=== PATIENT | female | born 1990 | race Caucasian/White ===

== ENCOUNTER → 2016-09-19 | Emergency (ER) | payer MEDICAID ==
[~2016-09-19] MED LIST: ACET325 PO; FOLIPOW27; IBUP-232 PO; OXYC1TAB63 PO; PERC5TAB12 PO; PREN1TAB30; SENN1TAB PO
--- NOTE | 2016-09-19 23:42 | PD ---
HPI Chief Complaint Contractions Date Seen: Sep 19, 2016 Time Seen: 23:38 Travel History International Travel<30 Days: No Contact w/Intl Traveler<30Days: No Known Affected Area: No History of Present Illness HPI 26-year-old who is at 38 weeks and 6 days comes in tonight for mild contractions for the past [address] Malone at [facility]. Had a previous section 1. Para: 3 : 3 History Past Medical History Medical History: Denies Significant Hx Obstetric History Obstetric History Spontaneous vaginal delivery 1, 1 Past Surgical History Narrative Surgical section Family History Family History: Negative Social History Alcohol Use: No Tobacco Use: No Substance Abuse: No Allergies-Medications (Allergen,Severity, Reaction): Coded Allergies: No Known Allergies (Unverified , 03/27/14) Home Meds Active Scripts Oxycodone-Acetaminophen 5-325 mg (Percocet 5-325 mg)1 Tab Tab1 Tab PO Q4H PRN ( PAIN SCALE 1 TO 4) #10 TAB Prov:Irene Gu MD R3 03/30/14 Acetaminophen (Tylenol)325 Mg [id number] Mg PO Q4H PRN (PAIN) #30 TAB Prov:Irene Gu MD R3 03/30/14 Reported Medications Folic Acid Pow 03/27/14 Vit W/ Ferrous Fumara ( Vitamin 27-0.8 mg)1 Tab Tab 03/27/14 Review of Systems Except as stated in HPI: all other systems reviewed are Neg Physical Exam Narrative GENERAL: Well-nourished, well-developed patient. SKIN: Warm and dry. HEAD: Normocephalic and atraumatic. EYES: No scleral icterus. No injection or drainage. ENT: No nasal drainage noted. Mucous membranes pink. Airway patent. NECK: Supple, trachea midline. No JVD. CARDIOVASCULAR: Regular rate and rhythm without murmurs, gallops, or rubs. RESPIRATORY: Breath sounds equal bilaterally. No accessory muscle use. BREASTS: Bilateral exam showed no masses , no retractions, no nipple discharge. ABDOMEN/GI: Abdomen soft, non-tender, bowel sounds present, no rebound, no guarding Gravid to [-] weeks size Fundal Height: [-38] GENITOURINARY: External Genitalia: intact and normal in appearance BUS glands: [-Normal] Cervix: Posterior Dilatation: 1-2 Effacement: 50 Station: -3 Presentation: Vertex Membranes: Intact Uterine Contractions: [-Irregular occasional] FHT's: Category: [-1] Baseline: 140 Reactive: Moderate Variability: Moderate with accelerations Decels: Absent EXTREMITIES: No cyanosis or edema. BACK: Nontender without obvious deformity. No CVA tenderness. NEUROLOGICAL: Awake and alert. Motor and sensory grossly within normal limits. Five out of 5 muscle strength in all muscle groups. Normal speech. Data Data Vital Signs Reviewed: Yes [facility] Medical Record Reviewed: No Plan Patient at 38 weeks 6 days, false labor. Will follow-up with her OB provider Precautions were given to return back to the hospital for rupture membranes, vaginal bleeding, or worsening contractions Diagnosis Diagnosis: Primary Impression: 38 weeks gestation of Additional Impressions: Previous section False labor False labor after 37 completed weeks of gestation Disposition: 01 DISCHARGE HOME Lynda Stauffer MD Sep 19, 2016 23:42
== END | disposition home or self-care (01) ==
LOC: HOBED 22:49
DX: O47.1 False labor at or after 37 completed weeks of gestation (principal); Z3A.38 38 weeks gestation of pregnancy
CPT/HCPCS: 59025

== ENCOUNTER 2016-09-26 22:04 | Inpatient (IN) | payer MEDICAID ==
[~2016-09-26 22:04] MED LIST changes: -IBUP-232 PO; -OXYC1TAB63 PO; -SENN1TAB PO
[2016-09-26] MEDS: LACTATED RINGER'S 1000 ML INJ 1,000 ML IV SCH (22:56)
[2016-09-26] MEDS ORDERED: LACTATED RINGER'S 1000 ML INJ 1,000 ML IV PRN (22:56)
[2016-09-26] MEDS ORDERED: MINERAL OIL 10 ML VIAL TOPICAL PRN (23:00)
[2016-09-26] MEDS ORDERED: OXYTOCIN 30 UNITS-500ML PREMIX 500 ML IV ONE (23:00)
[2016-09-26] MEDS ORDERED: LIDOCAINE HCL 1% 50 ML VIAL I-DERMAL PRN (23:00)
[2016-09-26] MEDS ORDERED: LIDOCAINE HCL 1% 50 ML VIAL INFIL PRN (23:00)
[2016-09-26] MEDS ORDERED: ONDANSETRON HCL 4 MG/2 ML VIAL IV PRN (23:00)
[2016-09-26] MEDS ORDERED: CITRIC ACID-SODIUM CITRATE LIQ 30 ML UDC PO SCH (23:00)
[2016-09-26] MEDS ORDERED: SODIUM CHLORID 0.9% 500 ML INJ 500 ML IV PRN (23:00)
[2016-09-26] MEDS ORDERED: SODIUM CHLOR 0.9% 1000 ML INJ 1,000 ML IV PRN (23:16)
[2016-09-26 23:27] LABS: BACTERIA, URINE RARE /hpf; BLOOD, URINE NEG (NEG); COMMENT (UR) CULT NOT INDICATED; CULTURE IF INDICATED CULT NOT INDICATED; GLUCOSE,URINE NEG (NEG); KETONE, URINE NEG (NEG); MUCUS URINE FEW /lpf (OCC); NITRITE,URINE NEG (NEG); PH, URINE 6.5 (5.0-8.5); SQUAMOUS EPITHELIAL CELL URINE 4 /hpf (0-5); URINE COLOR YELLOW (YELLW/STRAW)
[2016-09-27] VITALS (52 sets, daily range): BP systolic 97–121; BP diastolic 46–71; PULSE 43–83; RESP 16–18; TEMP 97.6–98.2; O2SAT 98–99
[2016-09-27 00:12] LABS: AUTOMATED NEUTROPHIL # 4.9 TH/MM3 (1.8-7.7); BASOPHIL % 0.5 % (0.0-2.0); EOSINOPHIL # 0.2 TH/MM3 (0-0.4); EOSINOPHIL % 2.1 % (0.0-4.0); HEMATOCRIT 32.4 % (35.0-46.0); HEMO FLAGS DIFF FINAL; LYMPH % 24.8 % (9.0-44.0); LYMPHOCYTE # 1.8 TH/MM3 (1.0-4.8); MEAN CELL VOLUME 91.6 FL (80.0-100.0); MEAN CORPUSCULAR HEMOGLOBIN 30.7 PG (27.0-34.0); MEAN CORPUSCULAR HGB CONC 33.5 % (32.0-36.0); MONO % 5.2 % (0.0-8.0); NEUT % 67.4 % (16.0-70.0); PLATELET COUNT 143 TH/MM3 (150-450); RED BLOOD COUNT 3.54 MIL/MM3 (4.00-5.30); RED CELL DISTRIBUTION WIDTH 13.8 % (11.6-17.2); WHITE BLOOD COUNT 7.3 TH/MM3 (4.0-11.0)
--- NOTE | 2016-09-27 00:15 | PD ---
History of Present Illness History of Present Illness HPI Chief Complaint Contractions Date Seen: Sep 26, 2016 Time Seen: 23:00 (Godwin Aldana MD R1) Travel History International Travel<30 Days: No Contact w/Intl Traveler<30Days: No Known Affected Area: No (Godwin Aldana MD) History of Present Illness HPI Patient is a at 39 weeks and 6 days who presents with contractions. Patient reports that she started to feel suprapubic and lower back pain and pressure starting this morning. She tried to endure the pain, but it became too intense, so she presented to the OB ED. She currently complains of left sided suprapubic pain. She denies any leakage of fluid or vaginal bleeding. She reports dark white vaginal discharge. She endorses movement. She denies any vaginal itching, burning, irritation. She denies any headache, blurred vision, vomiting, right upper quadrant pain, chest pain, shortness of breath, leg pain, dysuria. She endorses some mild nausea, lower extremity swelling. Patient reports that she has not had any care since March in [place]. Patient reports desire for . Para: 3 : 3 Last Menstrual Period: Sep 26, 2016 (Godwin Aldana MD R1) History Past Medical History Narrative Medical Patient denies any medical conditions including diabetes and hypertension. Medical History: Denies Significant Hx (Godwin Aldana MD R1) Obstetric History Obstetric History Patient is a , mother of a boy and twin girls. The son was born 2 days early via vaginal delivery. The twins were born 1 month early via . She reports that all of her pregnancies and deliveries were uncomplicated. ( Godwin Aldana MD R1) Past Surgical History Narrative Surgical for twin gestation (Godwin Aldana MD) Family History Narrative Family History No family history of problems with Family History: Negative (Godwin Aldana MD) Social History Narrative Social History Patient feels safe at home. Alcohol Use: No Tobacco Use: Yes (3-5 cigarettes per day) Substance Abuse: No (Godwin Aldana MD R1) Allergies-Medications (Allergen,Severity, Reaction): Coded Allergies: No Known Allergies (Unverified , 03/27/14) Home Meds Active Scripts Oxycodone-Acetaminophen 5-325 mg (Percocet 5-325 mg)1 Tab Tab1 Tab PO Q4H PRN ( PAIN SCALE 1 TO 4) #10 TAB Prov:Irene Gu MD R3 03/30/14 Acetaminophen (Tylenol)325 Mg [id number] Mg PO Q4H PRN (PAIN) #30 TAB Prov:Irene Gu MD R3 03/30/14 Reported Medications Folic Acid Pow 03/27/14 Vit W/ Ferrous Fumara ( Vitamin 27-0.8 mg)1 Tab Tab 03/27/14 Review of Systems General / Constitutional: No: Fever, Chills Eyes: No: Blurred Vision, Visual changes HENT: No: Headaches Cardiovascular: No: Chest Pain or Discomfort Respiratory: No: Short of Breath Gastrointestinal: Nausea, Abdominal Pain (suprapubic pain), No: Vomiting Genitourinary: No: Dysuria Musculoskeletal: Cramping (suprapubic), Edema (mild lower extremity edema), Pain (low back pain) Skin: No Rash Neurologic: No: Headache, Seizures (Godwin Aldana MD R1) Physical Exam Narrative GENERAL: Well-nourished, well-developed patient. SKIN: Warm and dry. HEAD: Normocephalic and atraumatic. EYES: No scleral icterus. No injection or drainage. ENT: No nasal drainage noted. Mucous membranes pink. Airway patent. NECK: Supple, trachea midline. No JVD. CARDIOVASCULAR: Regular rate and rhythm without murmurs, gallops, or rubs. RESPIRATORY: Breath sounds equal bilaterally. No accessory muscle use. BREASTS: Bilateral exam showed no masses , no retractions, no nipple discharge. ABDOMEN/GI: Abdomen soft, non-tender, bowel sounds present, no rebound, no guarding Gravid to 40 weeks size GENITOURINARY exam performed by Dr. García: External Genitalia: intact and normal in appearance Dilatation: 4cm Effacement: 70% Station: -2 Presentation: vertex Membranes: intact Uterine Contractions: q4min FHT's: Category: Category 1 Baseline: 135 bpm Reactive: Reactive Variability: Moderate variability Decels: No decelerations noted EXTREMITIES: No cyanosis or edema. BACK: Nontender without obvious deformity. No CVA tenderness. NEUROLOGICAL: Awake and alert. Motor and sensory grossly within normal limits. Five out of 5 muscle strength in all muscle groups. Normal speech. (Godwin Aldana MD R1) Data Data Vital Signs Reviewed: Yes Orders Admit To Inpatient (09/26/16 ) Code Status (09/26/16 22:56) Vital Signs (Adult) .Per protocol (09/26/16 22:56) Activity Oob Ad Aleyda (09/26/16 22:56) Heart (09/26/16 22:56) Amnioinfusion (09/26/16 22:56) Urinary Catheter Management .ONCE (09/26/16 22:56) Diet Liquid (09/27/16 Breakfast) Lactated Ringer's 1000 Ml Inj (Lr 1000 M (09/26/16 22:56) Lactated Ringer's 1000 Ml Inj (Lr 1000 M (09/26/16 22:56) Sodium Chlorid 0.9% 500 Ml Inj (Ns 500 M (09/26/16 23:00) Sodium Chlor 0.9% 1000 Ml Inj (Ns 1000 M (09/26/16 23:16) Lidocaine 1% Inj (50 Ml) (Xylocaine 1% I (09/26/16 23:00) Citric Acid-Sodium Citrate Liq (Bicitra (09/26/16 23:00) Ondansetron Inj (Zofran Inj) (09/26/16 23:00) Fentanyl Inj (Fentanyl Inj) (09/26/16 23:00) Fentanyl Inj (Fentanyl Inj) (09/26/16 23:00) Complete Blood Count With Diff (09/26/16 22:56) Hold Clot (09/26/16 22:56) Abo/Rh Blood Type (09/26/16 22:56) Urinalysis - C+S If Indicated (09/26/16 22:56) Resp Oxygen Non Rebreathe Mask (09/26/16 ) ^ Epidural / Intrathecal Infus (09/26/16 22:56) Oxytocin 30 Units-500ml Premix (Pitocin (09/26/16 23:00) Lidocaine 1% Inj (50 Ml) (Xylocaine 1% I (09/26/16 23:00) Light Mineral Oil (Muri-Lube Oil) (09/26/16 23:00) Inpatient Certification (09/26/16 ) Group B Beta Strep Scrn (Gbs) (09/26/16 22:56) Rubella Immune Status (09/26/16 22:56) Hepatitis Profile (09/26/16 22:56) Rapid Plasma Regin (Rpr) W Ttr (09/26/16 22:56) Type And Screen (09/26/16 22:56) Special Serology (09/26/16 22:56) Ob (2e) Additional Admit Info (09/26/16 23:09) (Godwin Aldana MD R1) Assessment/Plan Problem List: (1) Uterine contractions during (2) No care in current in third trimester (3) Labor and delivery, indication for care Assessment and Plan Patient is a at 39 weeks and 6 days who presents with contractions, found to be intact, 4 cm dilated, 70% effaced, -2 station. Plan to admit for labor and likely in the morning. 1) labor p/w contractions, cervical dilation Admit to inpatient Liquid diet LR IV Fentanyl 50 g IV push every hour when necessary for pain 3-5 Fentanyl 100 mg IV push every hour when necessary for pain 6-10 Zofran 4 mg IV every 6 hours when necessary for nausea Out of bed ad aleyda. Monitor heart rate with nonstress test Monitor vital signs Monitor contractions with tocometry Plan for in the morning 2) no recent care CBC Hepatitis profile RPR Rubella Special serology GBS screen UA (Godwin Aldana MD R1) Attending Attestation The exam, history, and the medical decision-making described in the above note were completed with the assistance of the resident provider. I reviewed and agree with the findings presented. I attest that I had a [id number] encounter with the patient on the same day, and personally performed and documented my assessment and findings in the medical record. I reviewed the r/b /a of TOLAC versus repeat and pt requests repeat . Pt also requests BTL at time of surgery. However, she has not had PNC or signed consent forms. Advised pt that she will have to schedule PP follow up for tubal consult. (Mario Alberto García MD) Godwin Aldana MD R1 Sep 26, 2016 23:23 Mario Alberto García MD Sep 27, 2016 00:11 <Electronically signed by Godwin Moore MD R1 Jovan> 09/26/16 [id number] <Electronically signed by Mario Alberto García MD> 09/27/16 0013 Mario Alberto García MD Sep 27, 2016 00:15
[2016-09-27 00:43] LABS: AMPHETAMINE, URINE NEG (NEG); BARBITURATES, URINE NEG (NEG); COCAINE, URINE NEG (NEG)
[2016-09-27 05:14] LABS: RUBELLA IGG ANTIBODY 59.1 IU/mL (10.0-500.0); RUBELLA STATUS IMMUNE (IMMUNE)
[2016-09-27] MEDS: LACTATED RINGER'S 1000 ML INJ 1,000 ML IV SCH (05:40)
[2016-09-27] MEDS ORDERED: LACTATED RINGER'S 1000 ML INJ 1,000 ML IV ONE (08:23)
[2016-09-27] MEDS ORDERED: OXYTOCIN 10 UNIT/ML AMP ONE (08:41)
[2016-09-27] MEDS ORDERED: LACTATED RINGER'S 1000 ML INJ 1,000 ML IV SCH ×2 (08:53→15:27)
[2016-09-27] MEDS ORDERED: EPIDURAL-NO SYSTEMIC NARCOTICS PRN (09:20)
[2016-09-27] MEDS ORDERED: EPIDURAL-DIPHENHYDRAMINE HCL 50 MG CAP PO PRN (09:20)
[2016-09-27] MEDS ORDERED: EPIDURAL-DO NOT ADMINISTER ANTICOAGULANTS PRN (09:20)
[2016-09-27] MEDS ORDERED: EPIDURAL-NALOXONE HCL 0.4 MG/ML AMP IV PRN (09:20)
[2016-09-27] MEDS ORDERED: EPIDURAL-DIPHENHYDRAMINE HCL 50 MG/ML VIAL IV PUSH PRN (09:20)
[2016-09-27] MEDS ORDERED: CITRIC ACID-SODIUM CITRATE LIQ 30 ML UDC PO SCH (10:00)
[2016-09-27 10:07] LABS: RAPID PLASMA REAGIN SCREEN NON-REACTIVE (NON-REACTVE)
[2016-09-27] MEDS ORDERED: MORPHINE SULFATE PF 5 MG/10 ML VIAL ONE (10:10)
[2016-09-27] MEDS ORDERED: ONDANSETRON HCL 4 MG/2 ML VIAL ONE (10:10)
[2016-09-27] MEDS ORDERED: SODIUM CHLORIDE 0.9% FLUSH 10 ML FLUSH IV FLUSH PRN (10:30)
[2016-09-27] MEDS ORDERED: oxyCODONE/ACETAMINOPHEN 5 MG/325 MG TAB PO PRN (10:30)
[2016-09-27] MEDS ORDERED: OXYTOCIN 30 UNITS-500ML PREMIX 500 ML IV ONE (10:30)
[2016-09-27] MEDS ORDERED: ONDANSETRON HCL 4 MG/2 ML VIAL IV PUSH PRN (10:30)
[2016-09-27] MEDS ORDERED: ACETAMINOPHEN 1000 MG/100 ML VIAL IV ONE ×2 (10:50→17:00)
[2016-09-27] MEDS ORDERED: KETOROLAC TROMETHAMINE 60 MG/2 ML (IM) VIAL IM ONE (16:45)
[2016-09-27] MEDS ORDERED: OXYTOCIN 30 UNITS-500ML PREMIX 500 ML IV PRN (20:30)
[2016-09-27] MEDS: SODIUM CHLORIDE 0.9% FLUSH 10 ML FLUSH IV FLUSH SCH (21:00)
[2016-09-27] MEDS: oxyCODONE/ACETAMINOPHEN 5 MG/325 MG TAB PO PRN (21:51)
[2016-09-28] VITALS: BP 111/59; PULSE 65; RESP 19; TEMP 98.1
[2016-09-28] MEDS: DOCUSATE SODIUM 50 MG/SENNA 8.6 MG TAB PO PRN ×2 (01:50→14:27)
[2016-09-28] MEDS: IBUPROFEN 600 MG TAB PO PRN ×4 (01:50→23:45)
[2016-09-28] MEDS: oxyCODONE/ACETAMINOPHEN 5 MG/325 MG TAB PO PRN ×6 (01:50→23:45)
[2016-09-28 04:00] VITALS: BP 104/55; PULSE 71; RESP 18; TEMP 98.4
[2016-09-28 08:00] VITALS: BP 100/50; PULSE 52; RESP 20; TEMP 98.2
--- NOTE | 2016-09-28 10:27 | HHI.OB ---
Subjective Post Operative Day: 1 Remarks 26 year old female s/p at 40/0 wks gestation, POD 1. AFVSS. Patient reports she is feeling well. Bleeding is decreasing and pain is well- controlled. She is breast and formula feeding and bonding well with baby. Ambulating without difficulties. She is tolerating a diet without nausea or vomiting. She has not had a bowel movement. She has not passed gas. Denies chest pain, dysuria, shortness of breath, or calf pain. (Perlita Kerns MD R2) Remarks Patient seen and evaluated with resident under direct supervision, agree with assessment and plan. (Jose Argueta MD) Objective Vitals/I&O Vital Signs Date Time Temp Pulse Resp B/P Pulse Ox O2 Delivery O2 Flow Rate FiO2 09/28/16 04:00 98.4 71 18 104/55 09/28/16 02:50 18 09/28/16 00:00 98.1 65 19 111/59 09/28/16 00:00 98.1 65 19 111/59 09/27/16 22:51 18 09/27/16 19:39 98.2 53 17 121/69 09/27/16 16:55 51 16 104/65 09/27/16 13:00 97.6 45 16 109/68 09/27/16 12:24 48 09/27/16 12:22 50 09/27/16 12:18 53 09/27/16 12:16 46 16 108/68 99 09/27/16 12:16 97.6 09/27/16 11:58 47 09/27/16 11:55 109/60 09/27/16 11:55 16 09/27/16 11:51 54 09/27/16 11:36 43 09/27/16 11:31 16 110/66 09/27/16 11:29 47 09/27/16 11:24 51 09/27/16 11:22 48 09/27/16 11:17 53 09/27/16 11:15 115/71 09/27/16 11:15 97.6 09/27/16 11:15 16 98 09/27/16 11:02 50 09/27/16 11:01 45 09/27/16 11:00 16 99 09/27/16 11:00 120/71 09/27/16 10:50 54 09/27/16 10:50 65 16 110/66 99 09/27/16 10:31 16 09/27/16 10:31 68 18 114/64 99 (Perlita Kerns MD R2) Result Diagram: 09/26/16 2330 Objective Remarks GENERAL: Well-nourished, well-developed patient. CARDIOVASCULAR: Regular rate and rhythm without murmurs, gallops, or rubs. RESPIRATORY: Breath sounds equal bilaterally. No accessory muscle use. ABDOMEN/GI: Abdomen soft, non-tender. Incision: Clean, dry and intact. Fundus: Firm, non-tender at umbilicus. GENITOURINARY: Light to moderate bleeding. EXTREMITIES: No cyanosis or edema, non-tender, without signs of DVT. Medications and IVs Current Medications Medications (Trade) Dose Ordered Sig/Caren Route Start Time Stop Time Status Last Admin (NS 1000 ml Inj) 1,000 ml @ 100 mls/hr Q10H PRN IV 09/26/16 23:16 (fentaNYL INJ) 50 mcg Q1H PRN IV PUSH 09/26/16 23:00 (fentaNYL INJ) 100 mcg Q1H PRN IV PUSH 09/26/16 23:00 Mineral Oil 10 ml 10 ml UNSCH PRN TOPICAL 09/26/16 23:00 Lactated Ringer's 1,000 ml @ 150 mls/hr Q6H40M IV 09/27/16 08:53 (Lr 1000 ml Inj) 1,000 ml @ 100 mls/hr Q10H IV 09/27/16 15:27 09/28/16 11:26 (NS Flush) 2 ml BID IV FLUSH 09/27/16 21:00 (NS Flush) 2 ml UNSCH PRN IV FLUSH 09/27/16 10:30 (Motrin) 600 mg Q6H PRN PO 09/27/16 10:30 09/28/16 07:56 (Percocet 5-325 Mg) 1 tab Q4H PRN PO 09/27/16 10:30 (Percocet 5-325 Mg) 2 tab Q4H PRN PO 09/27/16 10:30 09/28/16 06:09 (Linsey-Colace) 2 tab Q12H PRN PO 09/27/16 10:30 09/28/16 01:50 (M-M-R Ii Inj) 0.5 ml ONCE ONCE SQ 09/28/16 16:00 09/28/16 16:01 (Boostrix Inj) 0.5 ml ONCE ONCE IM 09/28/16 16:00 09/28/16 16:01 09/28/16 06:10 (Zofran Inj) 4 mg Q6H PRN IV PUSH 09/27/16 10:30 (Perlita Kerns MD R2) Assessment/Plan Problem List: (1) Uterine contractions during (2) No care in current in third trimester (3) Labor and delivery, indication for care Assessment and Plan 26 yo female s/p POD 1. - AFVSS - Continue routine care * UDS positive for marijuana - Motrin and Percocet PRN pain - Encourage OOB - Pelvic rest x 6 wks. Will need a f/u appt in 1wk for incision check. - Contraception: Options discussed, leaning towards Depo-Provera but wants to make a decision tomorrow - Recommend post follow up in 1 wk. Recommended care for woman for follow -up care - Anticipate D/C in 1-[address] Argueta (Perlita Kerns MD R2) Perlita Kerns MD R2 Sep 28, 2016 10:27 Jose Argueta MD Sep 29, 2016 19:08
[2016-09-28 11:06] LABS: HEMATOCRIT 29.4 % (35.0-46.0); MEAN CORPUSCULAR HEMOGLOBIN 30.7 PG (27.0-34.0); MEAN CORPUSCULAR HGB CONC 33.4 % (32.0-36.0); PLATELET COUNT 100 TH/MM3 (150-450); RED BLOOD COUNT 3.19 MIL/MM3 (4.00-5.30); RED CELL DISTRIBUTION WIDTH 14.1 % (11.6-17.2); REVIEW FLAG FINAL; WHITE BLOOD COUNT 6.4 TH/MM3 (4.0-11.0)
[2016-09-28 11:35] LABS: ALKALINE PHOSPHATASE 153 U/L (45-117); ALT (GPT) 13 U/L (10-53); ANION GAP 4 MEQ/L (5-15); AST (GOT) 28 U/L (15-37); BICARBONATE 29.9 MEQ/L (21.0-32.0); BLOOD UREA NITROGEN 3 MG/DL (7-18); CHLORIDE 107 MEQ/L (98-107); GLOMERULAR FILTRATION RATE 125 ML/MIN (>89); POTASSIUM 3.9 MEQ/L (3.5-5.1); SODIUM (NA) 141 MEQ/L (136-145); TOTAL BILIRUBIN ADULT 0.3 MG/DL (0.2-1.0)
[2016-09-28] MEDS ORDERED: IBUP-232 PO (13:52)
[2016-09-28] MEDS ORDERED: SENN1TAB PO (13:52)
[2016-09-28] MEDS ORDERED: OXYC1TAB63 PO (13:52)
--- NOTE | 2016-09-28 13:53 | HHI.DCPOC ---
Discharge Care Plan Diagnosis: (1) delivery delivered Report Symptoms to Your Doctor -Temperate above 100.5 degrees -Redness, of incision or excessive or foul smelling drainage -Unusual pain or calf pain -Increased vaginal bleeding -Painful or difficulty urinating -Feelings of extreme sadness or anxiety after 2 weeks Goals to Promote Your Health * To prevent worsening of your condition and complications * To maintain your health at the optimal level Directions to Meet Your Goals Take your medications as prescribed Follow your dietary instruction Follow activity as directed Ensure plenty of rest for recovery Drink fluids for hydration Keep your appointments as scheduled Take your immunizations and boosters as scheduled If your symptoms worsen call your PCP, if no PCP go to Urgent Care Center or Emergency Room Smoking is Dangerous to Your Health. Avoid second hand smoke Call the 24-hour crisis hotline for domestic abuse at Perlita Kerns MD R2 Sep 28, 2016 13:53
--- NOTE | 2016-09-28 15:32 | MP ---
cc: MARIO ALBERTO GARCÍA MD DATE OF : 1990 DATE OF SURGERY: 09/27/2016 PREOPERATIVE DIAGNOSIS: 1. Intrauterine at 40 weeks and 0 days. 2. No care. 3. Previous delivery, desires elective repeat. POSTOPERATIVE DIAGNOSIS: 1. Intrauterine at 40 weeks and 0 days. 2. No care. 3. Previous delivery, desires elective repeat. OPERATION: Repeat low transverse delivery. SURGEON: Mario Alberto García MD. INTEGRATED PEST MANAGEMENT TECHNICIAN: OR wafer fab technician. ANESTHESIA: Spinal. INTRAVENOUS FLUIDS: 1,300 cc. Lactated ringers. URINE OUTPUT: 20 cc clear yellow urine. ESTIMATED BLOOD LOSS: 500 cc. DRAINS: Crump to gravity. COMPLICATIONS: None. INDICATIONS FOR PROCEDURE: The patient is a 26 year-old 3, Para 2-0-0-3 with intrauterine at 40 weeks by first trimester ultrasound with no care who presented to labor and delivery with complaint of contractions. The patient was noted to have irregular contractions and cervical examination of 4/80 and -2. The patient had a history of previous delivery and requested a repeat delivery. The risks, benefits and alterative of trial of labor after section versus repeat section delivery were discussed with the patient and the patient elected to have repeat delivery. PROCEDURE 1. Male infant and light meconium stained fluid, time of delivery was 9:36, 's were 8 and 9, weight 3,230 grams. 2. Intact placenta with three vessel cord. 3. Normal pelvic anatomy. 4. Hemostasis at the completion of procedure. Preoperative antibiotics: Ancef 1 gram IV. SURGICAL SPECIMENS: Placenta, cord blood sample was also obtained. PROCEDURE IN DETAIL: After the risks, benefits and alternatives of repeat section delivery were discussed with the patient and all questions were answered and consents were verified. The patient was transferred to the operating room where spinal anesthesia was administered by the anesthesia team. Sequential compression devices hose were placed on the patients lower extremities and the Crump catheter was inserted in sterile fashion. The patient was placed in the dorsal supine position with the leftward tilt and prepped and draped in normal sterile fashion. a time out procedure was performed. Anesthesia was tested and found to be adequate. A Pfannenstiel skin incision was made over the previous scar and carried down to the underlying fascia. The fascia was incised on either side of the midline and the incision as extended laterally with the garrido scissors. The superior aspect of the fascial incision was grasped with Rita clamps and the rectus muscles were dissected off bluntly and sharply, this was repeated along the inferior aspect of the fascial incision. The rectus muscles were in the midline, the underlying peritoneum was entered bluntly and the incision was stretched manually. A bladder blade was placed. A bladder flap was created with the Metzenbaum scissors and blunt and sharp dissection. The scalpel was then used to make an incision in the lower uterine segment. once the amniotic bag was visualized, the incision was extended with the index fingers, and then membranes were ruptured revealing light meconium stained fluid. The infant' s head was then elevated out of the incision with upward traction and fundal pressure. The body followed with gentle traction. The mouth and nose were bulb suctioned. The cord was clamped and cut and the infant was handed off the waiting team. The placenta was then delivered with fundal massage. The uterus was exteriorized and cleared of all clots and debris. The uterine incision was repaired with a #1 chromic in a running locked fashion. Posterior cul-de-sac was irrigated and suctioned and the uterus was then returned to the abdomen. The gutters were irrigated and suctioned. the incision was irrigated, suctioned, reinspected, hemostasis was noted. Four pieces of Sepra film were placed over the uterine fundus and the uterine incision. The rectus muscles were then loosely reapproximated across the midline with #1 chromic. The fascia was closed with #1 Vicryl in a running fashion. The subcutaneous space was reapproximated with interrupted sutures of 2-0 Vicryl. The skin was closed with 4-0 Monocryl in a subcuticular fashion. Abdominal dressing was placed. The patient tolerated the procedure well, sponge, lap, needle and instrument counts were reported as correct times three. The patient was transported to the Recovery Room with her in stable condition. Chava Gupta /11:33 AM /3:04 PM [facility]ITALNeema
[2016-09-28] MEDS ORDERED: MEASLES, MUMPS, RUBELLA VACCINE 0.5 ML VIAL SQ ONE (16:00)
[2016-09-28] MEDS ORDERED: DIPHTH/TETANUS/ACEL PERTUSSIS (BOOSTER) 0.5 ML VIAL/PFS IM ONE (16:00)
[2016-09-28 20:00] VITALS: BP_SYST 116; BP_SYST 120; BP_DIAS 73; BP_DIAS 81; PULSE 101; PULSE 68; RESP 18; TEMP 98.2; TEMP 98.3
[2016-09-28] MEDS: SODIUM CHLORIDE 0.9% FLUSH 10 ML FLUSH IV FLUSH SCH (23:35)
[2016-09-29] MEDS: oxyCODONE/ACETAMINOPHEN 5 MG/325 MG TAB PO PRN ×2 (04:47→08:47)
[2016-09-29] MEDS: DOCUSATE SODIUM 50 MG/SENNA 8.6 MG TAB PO PRN (04:47)
[2016-09-29 05:47] VITALS: RESP 16
--- NOTE | 2016-09-29 07:49 | HHI.OB ---
Subjective Post Operative Day: 2 Remarks 26 year old female s/p at 40/0 wks gestation, POD 2. AFVSS. Patient reports she is feeling well. Bleeding is decreasing and pain is well- controlled. She is breast and formula feeding and bonding well with baby. Ambulating without difficulties. She is tolerating a diet without nausea or vomiting. She has had a bowel movement. She has passed gas. Denies chest pain, dysuria, shortness of breath, or calf pain. Objective Vitals/I&O Vital Signs Date Time Temp Pulse Resp B/P Pulse Ox O2 Delivery O2 Flow Rate FiO2 09/29/16 05:47 16 09/29/16 00:45 16 09/28/16 20:00 98.3 68 120/73 09/28/16 20:00 101 18 116/81 09/28/16 20:00 98.2 09/28/16 08:00 52 100/50 09/28/16 08:00 98.2 20 Result Diagram: 09/28/16 1051 09/28/16 1051 Objective Remarks GENERAL: Well-nourished, well-developed patient. CARDIOVASCULAR: Regular rate and rhythm without murmurs, gallops, or rubs. RESPIRATORY: Breath sounds equal bilaterally. No accessory muscle use. ABDOMEN/GI: Abdomen soft, non-tender. Incision: Clean, dry and intact. Fundus: Firm, non-tender at umbilicus. GENITOURINARY: Light to moderate bleeding. EXTREMITIES: No cyanosis or edema, non-tender, without signs of DVT. Medications and IVs Current Medications Medications (Trade) Dose Ordered Sig/Caren Route Start Time Stop Time Status Last Admin (NS 1000 ml Inj) 1,000 ml @ 100 mls/hr Q10H PRN IV 09/26/16 23:16 (fentaNYL INJ) 50 mcg Q1H PRN IV PUSH 09/26/16 23:00 (fentaNYL INJ) 100 mcg Q1H PRN IV PUSH 09/26/16 23:00 Mineral Oil 10 ml 10 ml UNSCH PRN TOPICAL 09/26/16 23:00 (Lr 1000 ml Inj) 1,000 ml @ 150 mls/hr Q6H40M IV 09/27/16 08:53 (NS Flush) 2 ml BID IV FLUSH 09/27/16 21:00 (NS Flush) 2 ml UNSCH PRN IV FLUSH 09/27/16 10:30 (Motrin) 600 mg Q6H PRN PO 09/27/16 10:30 09/28/16 23:45 (Percocet 5-325 Mg) 1 tab Q4H PRN PO 09/27/16 10:30 (Percocet 5-325 Mg) 2 tab Q4H PRN PO 09/27/16 10:30 09/29/16 04:47 (Linsey-Colace) 2 tab Q12H PRN PO 09/27/16 10:30 09/29/16 04:47 (Zofran Inj) 4 mg Q6H PRN IV PUSH 09/27/16 10:30 Assessment/Plan Problem List: (1) Uterine contractions during (2) No care in current in third trimester (3) Labor and delivery, indication for care Assessment and Plan 26 yo female s/p POD 2. - AFVSS - Continue routine care * UDS positive for marijuana - Motrin and Percocet PRN pain - Encourage OOB - Pelvic rest x 6 wks. Will need a f/u appt in 1wk for incision check. - Contraception: Options discussed, leaning towards Depo-Provera but wants to make a decision at follow up appt with OBGYN - Recommend post follow up in 1 wk. Recommended care for woman for follow -up care vs prior OBGYN physician - Anticipate D/C today dw Dr. Isrrael Bob-Perlita Gaming MD R2 Sep 29, 2016 07:49
[2016-09-29] MEDS: IBUPROFEN 600 MG TAB PO PRN (08:47)
[2016-09-29] MEDS ORDERED: OXYC1TAB63 PO (11:22)
[2016-10-03 10:27] LABS: BATH SALTS (MDPV) UR NEG (NEG); ECSTASY (MDMA) UR NEG (NEG); HEROIN (6-ACETYLMORPHINE) UR NEG (NEG); K2 SPICE UR NEG (NEG); OBMETHADONE UR NEG (NEG); PHENCYCLIDINE URINE NEG (NEG)
[2016-10-03 10:28] LABS: GABAPENTIN UR NEG (NEG); HYDROMORPHONE U NEG (NEG)
[2016-10-03 10:32] LABS: OXYCODONE (PERCODAN) POS (NEG)
== END 2016-09-29 09:58 | disposition home or self-care (01) | DRG 766 ==
LOC: HOBED 22:04 → H2EB 23:10 → H1EA 09-27 12:39
PROVIDERS: ADMIT Obstetrics & Gynecology; ATTEND Obstetrics & Gynecology
PROC: 10D00Z1 Extraction of Products of Conception, Low, Open Approach (ICD-10-PCS; principal; 2016-09-26)
DX: O34.219 Maternal care for unspecified type scar from previous cesarean delivery (principal); F17.210 Nicotine dependence, cigarettes, uncomplicated; Z37.0 Single live birth; O77.0 Labor and delivery complicated by meconium in amniotic fluid; O99.334 Smoking (tobacco) complicating childbirth; N89.8 Other specified noninflammatory disorders of vagina; Z3A.39 39 weeks gestation of pregnancy; O09.30 Supervision of pregnancy with insufficient antenatal care, unspecified trimester
CPT/HCPCS: 80053; 80074; 80307; 80348; 81001; 85025; 85027; 86592; 86703; 86762; 86900; 86901; 88307; 90715; 99285; G0480; G0481; J0131; J0690; J1885; J2274; J2405; J2590; J3010; J7120